=== PATIENT | male | born 1945 | race Caucasian/White ===

== ENCOUNTER 2023-11-09 19:48 | Inpatient (IN) | payer MEDICARE, SELFPAY ==
[2023-11-09] VITALS (10 sets, daily range): BP systolic 111–129; BP diastolic 58–72; BMI 21.9
[2023-11-09 14:57] LABS: % Basophils 0.3 % (0-2); % Eosinophils 0.1 % (0-6); % Immature Granulocytes 0.3 % (0-0.5); % Lymphocytes 11.6 % (20.5-51.1); % Neutrophils 73.7 % (42.2-75.2); Absolute Basophils 0.1 10^3/uL (0-0.2); Absolute Immature Granulocytes 0.1 10^3/uL (0-0.05); Absolute Lymphocytes 1.7 10^3/uL (1.2-3.4); Absolute Neutrophils 10.7 10^3/uL (1.4-6.5); Hematocrit 40.1 % (39.0-52.0); Hemoglobin 13.8 g/dL (13.0-18.0); Mean Corp Hgb Conc. 34.4 g/dL (33.0-37.0); Mean Corpuscular Hgb 31.9 pg (27.0-31.0); Mean Corpuscular Volume 92.8 fL (80.0-94.0); Mean Platelet Volume 9.9 fL (7.4-10.4); Nucleated Red Blood Cells % 0 % (-); Platelet Count 224 10^3/uL (130-400); Red Blood Cell Count 4.32 10^6/uL (4.70-6.10); White Blood Cell Count 14.5 10^3/uL (4.8-10.8)
[2023-11-09 15:09] LABS: ALT (SGPT) 17 U/L (0-50); AST (SGOT) 28 U/L (17-59); Albumin 4.2 g/dl (3.5-5.0); Alkaline Phosphatase 58 U/L (38-126); Blood Urea Nitrogen 32 mg/dl (9-20); Calcium 9.6 mg/dl (8.4-10.2); Carbon Dioxide 30 mmol/L (22-30); Chloride 98 mmol/L (98-107); Glucose 112 mg/dl (70-99); Lipase 54 U/L (23-300); Potassium 4.6 mmol/L (3.5-5.1); Sodium 138 mmol/L (135-145); Total Bilirubin 2.1 mg/dl (0.2-1.3); eGFR > 60.00
[2023-11-09 15:18] LABS: COVID-19 Antigen Negative (Negative)
--- NOTE | 2023-11-09 18:14 | ED.GENMED ---
History of Present Illness
General
Chief Complaint: Abdominal Pain
Source: patient
Exam Limitations: none
Time Seen by Provider: 11/09/23 15:19
Nursing documentation reviewed up to this point in time: agreed with
History of Present Illness
History of Present Illness:
Patient to ED wt complaint of upper abdominal pain. Reports bloating senstion on Sat PM, unable to sleep. SUn AM he developd upper abd. pain and pain continues to worsen. Denies fever but reports chills. No n/v/d. Poor appetite. No prior
history of same.
Past History
Past History
ED Past Medical History: Hypercholesterolemia
ED Past Surgical History: Tonsilectomy
Review of Systems
Review of Systems
Allergies reviewed?: Yes
All Other Systems: ROS reviewed and negative except as documented in HPI and ROS
Constitutional: Reports no symptoms
EENT: Reports no symptoms
Respiratory: Reports no symptoms
Cardiac: Reports no symptoms
ABD/GI: Reports abdominal pain and anorexia
: Reports no symptoms
Musculoskeletal: Reports no symptoms
Skin: Reports no symptoms
Neurological: Reports no symptoms
Psychiatric: Reports no symptoms
Phy Exam
General Physical Exam
General Presentation: well appearing and no apparent distress
General age: appears stated age
General Skin: warm and dry
General Habitus: normal
General Mental: alert
Cardiovascular Exam
Cardiovascular Exam: regular rate/rhythm and no edema
Pulmonary Exam
Pulmonary Exam: lungs clear and no respiratory distress
Gastrointestinal Exam
Gastrointestinal Exam: normal bowel sounds, soft, no organomegaly, no pulsatile mass, non distended and no cva tenderness
Palpation: left upper quadrant: Moderate tenderness, left lower quadrant: No tenderness, right upper quadrant: Moderate tenderness and right lower quadrant: No tenderness
Musculoskeletal Exam
Musculoskeletal Exam: full ROM and neuro vasc intact
Skin Exam
Skin Exam: normal color, warm/dry and no rash
Psychiatric Exam
Psychiatric Exam: normal mood/affect
Course
Orders/Labs/Results
Orders:
Orders
11/09/23 14:40
Electrocardiogram (*1) Urgent
Reason for Study: Abdominal Pain
EKG- Treatment ONCE
11/09/23 14:48
COVID-19 Antigen Urgent
Source: Nasal Swab
Complete Blood Count/With Diff Urgent
Comprehensive Metabolic Panel Urgent
Lipase Urgent
Lyme Progressive Urgent
11/09/23 Dinner
NPO
Allow oral meds: No
Allow clear liquids: Sips of Clears
NPO with Ice Chips: Yes
11/09/23 16:11
US Abdomen Complete/Upper Urgent
Comment:
Reason For Exam: upper abdominal paiin
11/09/23 18:23
Piperacillin/Tazo 3.375 Gram [Zosyn] 3.375 gram in 50 ml IV NOW
11/09/23 18:30
0.9% Sodium Chloride 1000 ml [Nss] 1,000 ml IV 125 mls/hr
11/09/23 19:24
Admit/Transfer Patient As Directed
Co-Sign Provider:
Level of Care: Inpatient admission
Assign to:: Medical/Surgical
Physician / Group: Hospitalist
Diagnosis: Cholecystitis
Reason for Hospitalization: cholecystitis
Expected length of stay greater than two midnights?: Yes
ELOS- Estimated Length of Stay in days: 3
I certify the patient meets the requirements for IP care: Yes
Code Status As Directed
Resuscitation Status: Full Code
PRN Pain Medication Management As Directed
May give lesser potent ordered pain med per pt: Yes
preference::
Protocol:: Medication orders for pain may be administered in a
manner that supports deferring to patient preference
when the pt is:
- Requesting an ordered lesser potent pain medication.
Least to most potent pain medications are defined
as: acetaminophen < NSAID < tramadol < opioids
(morphine, oxycodone, hydromorphone).
- Requesting a lesser dose of the same medication IF
ORDERED.
- Requesting a less intrusive route of administration
if both routes are prescribed by the provider (PO <
IV).
11/09/23 20:23
Bisacodyl [Dulcolax] 10 mg RECTAL [id number] PRN
Morphine Sulfate 2 mg IV Q4HPRN PRN
Ondansetron Injectable [Zofran] 4 mg IV Q6HPRN PRN
11/09/23 20:23
SURGICAL CONSULT Routine
Consulting Provider: Aaron Schilling
Was physician already notified: Yes
Reason for consult: cholecystitis
MR Mrcp Without Routine
Comment:
Reason For Exam: cholecystitis
OK for patient to be off Cardiac Monitoring for MRI: Yes
Recent pill cam endoscopy?: No
Activity As Directed
Activity Level: Ambulate
Pneumatic Compression Sleeves As Directed
Type: Knee high
Vital Signs As Directed
Frequency: Per unit guidelines
DX Deep Vein Thrombosis Video Routine
11/10/23 06:00
Amylase IN AM
Complete Blood Count/No Diff IN AM
Comprehensive Metabolic Panel IN AM
Lipase IN AM
Abnormal Lab Results
11/09/23
14:48
WBC 14.5 H 10^3/uL
(4.8-10.8)
RBC 4.32 L 10^6/uL
(4.70-6.10)
MCH 31.9 H pg
(27.0-31.0)
Abs Immat Gran (auto) 0.1 H 10^3/uL
(0-0.05)
Absolute Neuts (auto) 10.7 H 10^3/uL
(1.4-6.5)
Absolute Monos (auto) 2.0 H 10^3/uL
(0.1-0.6)
Lymphocytes % 11.6 L %
(20.5-51.1)
Monocytes % 14.0 H %
(1.7-9.3)
BUN 32 H mg/dl
(9-20)
Glucose 112 H mg/dl
(70-99)
Total Bilirubin 2.1 H mg/dl
(0.2-1.3)
11/09/23 14:48
11/09/23 14:48
Vital Signs
Initial and Last Documented VS:
Initial Vital Signs
Temp Pulse Resp BP Pulse Ox
99.5 F 66 20 120/72 94
11/09/23 14:36 11/09/23 14:36 11/09/23 14:36 11/09/23 14:36 11/09/23 14:36
Last Documented Vital Signs
Temp Pulse Resp BP Pulse Ox
98.3 F 56 20 129/71 95
11/09/23 20:33 11/09/23 20:33 11/09/23 20:33 11/09/23 20:33 11/09/23 20:33
*Radiology
Radiology exam reviewed: radiology read reviewed
*Pulse Oximetry
Patient hypoxic: no
*Critical Care Note
Total Time (30-74mins, 75-104mins- exclusive of procedures): Not Applicable
Update Note
Update Note:
Dr. Blanco notified of US findings. WIll admit to hospitalist service, Dr. Schilling to consult. [facility] tomorrow. Patient and family agreeable to plan.
ED Attending Note
-
Portions of this chart may have been created with voice recognition software.� Occasional wrong word or��sound alike� substitutions may have occurred due to the inherent limitations of voice recognition software.
Discharge Plan
Departure
Patient Disposition: Admit
Date of Disposition: 11/09/23
Time of Disposition: 18:21
Presentation/result/management discussed w/ accepting MD/DO: Hospitalist
Patient with high blood pressure during this ER visit?: No
Condition: Fair
Discharge Problem:
Cholecystitis, Dilated bile duct
Interventions
Interventions:
*Risk Screen - Suicide Last Done: 11/09/23 18:16
*General Assessment Last Done: 11/09/23 18:16
*Neglect/Abuse Screening Last Done: 11/09/23 18:16
*ED COVID-19 Vaccine History Last Done: 11/09/23 18:16
*Nursing Disposition Last Done: 11/09/23 20:11
[facility]Hpsxoyqdj[facility] Assessment Last Done: 11/09/23 18:18
Discharge Date and Time
Discharge Date/Time: 11/09/23 20:11
[2023-11-09] MEDS: ZOSYN 50 IV (18:29)
[2023-11-09] MEDS: NSS 1000 IV (18:30)
--- NOTE | 2023-11-09 19:13 | HPS.HSE ---
Family Physician
-
Family Physician: Mary Miguel
Chief Complaint
-
ABd pain
History of Present Illness
78 man, usually in good health, comes in with complaint of upper abdominal pain. He reports bloating sensations 2 days ago, and has been unable to sleep. Yesterday, he developed upper abd. pain and the pain continued to worsen. He denies fever,
but reports chills. No n/v/d. Poor appetite. No prior history of same. At the time of my interview, he was comfortable.
Medical History
Past Medical History
Past Medical History: Reports Other
Additional Past Medical History:
Hypercholesterolemia
h/o Tonsilectomy
Past Surgical History: Reports Other
Additional Past Surgical History:
See above
Social History
Tobacco: Non-smoker
Alcohol: None
Drug: None
Family History
Family History: Not pertinent
Allergies / Home Medications
Allergies reflects when Allergies were last updated in [facility].
Home Medications with original date entered in [facility]
Allergy/Medication List:
Allergies
Allergy/AdvReac Type Severity Reaction Status Date / Time
No Known Allergies Allergy Unverified 11/09/23 14:37
Home Medications
atorvastatin 10 mg tablet 10 mg PO HS 11/09/23
calcium carbonate 500 mg-vitamin D3 3.125 mcg (125 unit) tablet 1 tab PO DAILY 11/09/23
ibuprofen 200 mg tablet 200 mg PO Q6HPRN PRN mild pain 11/09/23
omega 3-dnm-erf-fish oil 1,000 mg (120 mg-180 mg) capsule (Fish Oil) 1 cap PO DAILY 11/09/23
Review of Systems
-
History Source: Patient
A 12 point ROS was completed and negative except as noted: Yes
Physical Exam
Vital Signs
Vital Signs
Temp Pulse Resp BP Pulse Ox
99.5 F 61 18 122/69 95
11/09/23 14:36 11/09/23 18:15 11/09/23 18:15 11/09/23 18:00 11/09/23 18:15
Physical Exam
General: Well Developed, Well Nourished, No Apparent Distress, Comfortable and Conversant
HEENT: NormoCephalic, Anicteric, Moist mucous membranes, [place] Conjunctivae, No Ptosis, Nose Appears Normal and Ears Appear Normal
Respiratory: Clear
Cardiac: S1/S2 and Regular Rhythm
GI: Soft, Non Tender and Non Distended
Musculoskeletal: No Clubbing, No Cyanosis and No Edema
Skin: Warm and Dry; No Rash or Jaundice
Neuro: Awake, Alert, Oriented and AO x 3
Psych: Calm
Laboratory Results
-
11/09/23 14:48
11/09/23 14:48
Laboratory Results
Total Bilirubin 2.1 mg/dl (0.2-1.3) H 11/09/23 14:48
AST 28 U/L (17-59) 11/09/23 14:48
ALT 17 U/L (0-50) 11/09/23 14:48
Alkaline Phosphatase 58 U/L (38-126) 11/09/23 14:48
Lipase 54 U/L (23-300) 11/09/23 14:48
Data Reviewed
-
Lab Data: Labs Reviewed by me
Impression/Plan
-
IMPRESSION:
78 man with abd pain and cholecystitis. US and labs shows:
There is biliary sludge in the gallbladder with thickening of the gallbladder wall to 3.5 mm suggesting possible cholecystitis
There is intrahepatic and extrahepatic biliary dilatation suggesting distal biliary obstruction such as may be seen with biliary ductal calculus
The pancreas is suboptimally visualized
WBC 14.5
BUN/Creat 32/0.8
Lipase 54
PLAN:
1. Probable chocystitis, with WBC of 14.5, no signs of pancreatitis.
Surgical consult (By ED)
MRCP requested
NPO
IV pain/nausea control
IV fluids
2. BUN/Creat > 20, likely from poor po intake
IV fluids
Recheck labs in am
Code: Full
VCD for DVTp
--- NOTE | 2023-11-09 20:30 | PTCARENOTE ---
Pt a 78 man, arrived from ED at 20:15. He had been having upper abdominal pain & bloating sensations 2 days & unable to sleep. Yesterday, he developed upper abd. pain and the pain continued to worsen with chills, poor appetite but no n/v/d. PMH
HLD. An US of his abdomen showed biliary sludge and thickening in the gallbladder wall suggesting cholecystitis, a 1cm renal cyst and dilation of the common bile duct to 9mm suggesting possible ductal calculus. Pt will have surgical consult
tomorrow. Pt arrived with his Dena and 2 of his four adult children. Pt is AOx3, indicates his pain is a 2 & he does not require medication at this time. N/S is running in his LAC at 125 mL/hr. Pt's bed is in a low position, call light in reach
and SCDs are on.
--- NOTE | 2023-11-09 22:00 | PTCARENOTE ---
Pt last BM reported by pt on 11/06. Pt refused Dulcolax Suppository last night. Said he does not feel constipated because he has not been eating much. Pt said he will reconsider tomorrow after MRCP and taking to the surgeon.
[2023-11-10] VITALS (12 sets, daily range): BP systolic 108–129; BP diastolic 56–78; BMI 22.1
[2023-11-10] MEDS: NSS 1000 IV ×2 (02:30→10:34)
[2023-11-10 07:10] LABS: Hemoglobin 12.8 g/dL (13.0-18.0); Mean Corp Hgb Conc. 33.7 g/dL (33.0-37.0); Mean Corpuscular Hgb 32.2 pg (27.0-31.0); Mean Corpuscular Volume 95.5 fL (80.0-94.0); Mean Platelet Volume 10.6 fL (7.4-10.4); Platelet Count 207 10^3/uL (130-400); Red Blood Cell Count 3.98 10^6/uL (4.70-6.10); Red Cell Dist. Width 11.9 % (11.5-14.5); White Blood Cell Count 12.5 10^3/uL (4.8-10.8)
--- NOTE | 2023-11-10 07:24 | W.PN.HOSP.TC ---
Today's Communication/Plan
-
check MRCP
NPO
pain control
Surgery eval
Assessment / Plan
Assessment / Plan
Physical Exam
General: Well Developed, Well Nourished, No Apparent Distress, Comfortable and Conversant
HEENT: NormoCephalic, Anicteric, Moist mucous membranes, [place] Conjunctivae, No Ptosis
Cardiac: S1/S2 and Regular Rhythm
GI: Soft, Non Tender and Non Distended
Musculoskeletal: No Clubbing, No Cyanosis and No Edema
Skin: Warm and Dry; No Rash or Jaundice
Neuro: AO x 3
Psych: Calm
78 man with abd pain and cholecystitis. US and labs shows:
There is biliary sludge in the gallbladder with thickening of the gallbladder wall to 3.5 mm suggesting possible cholecystitis
There is intrahepatic and extrahepatic biliary dilatation suggesting distal biliary obstruction such as may be seen with biliary ductal calculus
The pancreas is suboptimally visualized
WBC 14.5
BUN/Creat 32/0.8
Lipase 54
PLAN:
1. Probable chocystitis, with WBC of 14.5, no signs of pancreatitis.
Surgical consult appreciated
MRCP pending
NPO
IV pain/nausea control
IV fluids
2. BUN/Creat > 20, likely from poor po intake
IV fluids
monitor
Code: Full
VCD for DVTp
Anticipated Discharge: 24 - 48 hours
Subjective/Interval History
-
Date of Service: November 10, 2023
No acute distress. Appears comfortable at this time. Reports pain significantly improved. No tenderness
Objective Data
-
Labs:
Laboratory Results
11/10/23
06:02
WBC 12.5 H
Hgb 12.8 L
Hct 38.0 L
Plt Count 207
Sodium Pending
Potassium Pending
Chloride Pending
Carbon Dioxide Pending
BUN Pending
Creatinine Pending
Glucose Pending
Calcium Pending
Total Bilirubin Pending
AST Pending
ALT Pending
Alkaline Phosphatase Pending
Vital Signs:
Vital Signs
Temp Pulse Resp BP Pulse Ox
99.1 F 57 20 112/60 94
11/09/23 23:13 11/09/23 23:13 11/09/23 23:13 11/09/23 23:13 11/09/23 23:13
[2023-11-10 07:30] LABS: ALT (SGPT) 14 U/L (0-50); AST (SGOT) 25 U/L (17-59); Albumin 3.5 g/dl (3.5-5.0); Alkaline Phosphatase 61 U/L (38-126); Amylase 63 U/L (30-110); Blood Urea Nitrogen 27 mg/dl (9-20); Calcium 8.8 mg/dl (8.4-10.2); Carbon Dioxide 27 mmol/L (22-30); Chloride 101 mmol/L (98-107); Estimated Creatinine Clearance 92 ml/min; Glucose 78 mg/dl (70-99); Lipase 48 U/L (23-300); Potassium 4.1 mmol/L (3.5-5.1); Sodium 137 mmol/L (135-145); Total Bilirubin 2.1 mg/dl (0.2-1.3); Total Protein 6.1 g/dl (6.3-8.2); eGFR > 60.00
--- NOTE | 2023-11-10 12:33 | CM ---
Admitted with probable cholecystitis
Met with pt and his at bedside
Pt lives with his in a 2 story home with 1 step to enter, 13 steps to 2nd fl
Describes self as active/independent, retired, drives
DME - none
SNF/HH - no past hx; has had outpatient PT in past
PCP - Dr Mary Miguel
Pharm - [facility]
CM remains available for discharge needs
Plan - anticipate home no needs
[2023-11-10] MEDS: ZOSYN 50 IV ×3 (12:48→23:09)
--- NOTE | 2023-11-10 13:13 | CON.GS ---
Medical History
-
Chief Complaint: Epigastric abdominal pain
History of Present Illness:
Patient is a 78 yo M with a PMH notable for HLD who presents with 2 to 3 days of epigastric abdominal pain. Mr. Merritt states that his pain began Thursday (11/06) evening. He describes a bloating and epigastric discomfort which is worse with deep
inspiration. Limited p.o. intake over the past 2 to 3 days due to his symptoms. He denies any acute worsening of pain or symptoms around the time of eating. He denies any prior attacks of similar discomfort. No fevers or chills. No nausea or
vomiting. No jaundice, pale stools, or tea colored urine.
Past Medical History
Past Medical History: Hypercholesterolemia
Past Surgical History: Tonsilectomy
Social History
Tobacco: Non-Smoker
Alcohol: None
Drug: None
Employment: Retired
Family History
Family History: Reviewed & Noncontributory
Allergies / Home Medications
Allergy/AdvReac Type Severity Reaction Status Date / Time
No Known Allergies Allergy Unverified 11/09/23 14:37
�Medication �Instructions �Recorded �Confirmed �Type
atorvastatin 10 mg tablet 10 mg PO HS High Cholesterol 11/09/23 11/09/23 History
calcium carbonate 500 mg-vitamin 1 tab PO DAILY Supplement 11/09/23 11/09/23 History
D3 3.125 mcg (125 unit) tablet
ibuprofen 200 mg tablet 200 mg PO Q6HPRN PRN mild pain 11/09/23 11/09/23 History
omega 1-blj-pqa-fish oil 1,000 mg 1 cap PO DAILY High Cholesterol 11/09/23 11/09/23 History
(120 mg-180 mg) capsule (Fish Oil)
Review of Systems
-
A 10 point review of systems was completed, and was negative except as per HPI.
Physical Exam
Vital Signs
Temp Pulse Resp BP Pulse Ox
99.3 F 64 17 116/78 95
11/10/23 07:39 11/10/23 07:39 11/10/23 07:39 11/10/23 07:39 11/10/23 08:16
11/09/23 11/10/23 11/11/23
06:59 06:59 06:59
Actual Weight 73.709 kg
Body Mass Index (BMI) 22.1
Lab Results
11/10/23 06:02
11/10/23 06:02
WBC 12.5 10^3/uL (4.8-10.8) H 11/10/23 06:02
Hgb 12.8 g/dL (13.0-18.0) L 11/10/23 06:02
Hct 38.0 % (39.0-52.0) L 11/10/23 06:02
Plt Count 207 10^3/uL (130-400) 11/10/23 06:02
Abs Immat Gran (auto) 0.1 10^3/uL (0-0.05) H 11/09/23 14:48
Neutrophils % 73.7 % (42.2-75.2) 11/09/23 14:48
Physical Exam
General: Well Developed, Well Nourished and No Apparent Distress
HEENT: Normocephalic and Anicteric
Respiratory: Non Labored Respirations
Cardiac: Regular Rhythm
GI: Soft, Non Distended, Tender (Mild epigastric, positive Gaitan sign) and Other (Nonperitoneal)
Musculoskeletal: No Edema
Neuro: Nonfocal/Grossly Intact
Data Reviewed
-
Ultrasound: Image Personally Visualized and interpreted and Report Reviewed by me
MRI: Image Personally Visualized and interpreted and Report Reviewed by me
Labs: Labs Reviewed by me
Assessment / Plan
-
Patient is a 78 yo M p/w likely cholecystitis, possible passed choledocholithiasis
The natural history and pathophysiology of biliary and stone disease was discussed. Workup thus far including labs, ultrasound, and MRI imaging were reviewed. Persistent abdominal discomfort. Options for management including medical management
with low-fat diet and antibiotics versus surgical management with cholecystectomy were considered and discussed. The pros and cons of both approaches was discussed. Given his persistent discomfort recommend cholecystectomy.
Plan for laparoscopic cholecystectomy with possible cholangiogram. The procedure itself, as well as the risks, benefits, and alternatives was discussed. Specifically, we discussed the risks of bleeding, infection, injury to surrounding structures
(bowel, bile ducts), CBD injury, need for open procedure. Typical post procedure recovery including pain management, limitations in activities, and the 10 to 20% risk of fluctuations in GI function were discussed. All questions answered. Consent
signed.
-- Laparoscopic cholecystectomy with possible IOC
-- NPO, IVF
-- Antibiotics: Zosyn
-- Admitted back to floor postoperatively
--- NOTE | 2023-11-10 13:18 | W.SUR.PREOP ---
Pre-Operative Surgical Note
-
I have examined this patient prior to the performance of the scheduled procedure.
The patient's condition is unchanged from the time of the current History and
Physical and the patient is able to undergo the scheduled procedure.
--- NOTE | 2023-11-10 15:19 | W.IMMPOSTOP ---
Addendum entered and electronically signed by Bridger Busch MD 11/13/23 15:54:
[facility]#[id number]
Original Note:
Surgical Immed Post Op Note
-
Primary Surgeon: Narayan
Assisting Surgeon: None
Pre-op Diagnosis: Acute cholecystitis
Post-op Diagnosis: Cholecystitis and choledocholithiasis
Procedure Performed: Laparoscopic cholecystectomy with IOC
Anesthesia Type: General
Specimen / Cultures:
1. Gallbladder
Estimated Blood Loss: 3 cc
Complications: None
Operative Findings:
1. Acutely inflamed GB with significant wall thickening and edema, purulence within the cystic ductotomy
2. Critical view
3. IOC with anatomy confirmed and filling defects just above the cystic duct insertion within the CBD, no obstruction
Plan:
-- GI consult for choledocholithiasis
-- Continue abx for at least 4 days post-op, more if bacteremic
[2023-11-10] MEDS: TYLENOL PO (15:53)
--- NOTE | 2023-11-10 16:09 | CON.GI ---
Consultation
-
Date/Time Consultation Requested: 11/10/2023
Date/Time Consultation Performed: 11/10/2023
Performing Provider: Benjy Palacios
Reason for Consultation: +ve IOC
Medical History
Chief Complaint / HPI
Chief Complaint: +ve IOC
History of Present Illness:
Patient is a 78-year-old male with no significant history who presented with 2-day history of right-sided abdominal pain. His pain was associated with significant bloating. He had RUQ US which showed gallbladder sludge as well as gallbladder wall
thickening and intra and extrahepatic ductal dilation suggestive of possible choledocholithiasis. This was followed with MRCP which was negative for CBD stone. Patient was taken to the OR for cholecystectomy and had IOC which showed filling
defects.
Past Medical History
Past Medical History: Hypercholesterolemia
Past Surgical History: Tonsilectomy
Social History
Tobacco: Non-Smoker
Alcohol: None
Allergies / Home Medications
Allergy/AdvReac Type Severity Reaction Status Date / Time
No Known Allergies Allergy Unverified 11/09/23 14:37
�Medication �Instructions �Recorded
atorvastatin 10 mg tablet 10 mg PO HS High Cholesterol 11/09/23
calcium carbonate 500 mg-vitamin 1 tab PO DAILY Supplement 11/09/23
D3 3.125 mcg (125 unit) tablet
ibuprofen 200 mg tablet 200 mg PO Q6HPRN PRN mild pain 11/09/23
omega 1-aqu-ipe-fish oil 1,000 mg 1 cap PO DAILY High Cholesterol 11/09/23
(120 mg-180 mg) capsule (Fish Oil)
Review of Systems
Vital Signs
Temp Pulse Resp BP Pulse Ox
97.9 F 55 13 117/61 100
11/10/23 15:35 11/10/23 16:00 11/10/23 16:00 11/10/23 16:00 11/10/23 16:05
Physical Exam
Exam
General: Well Developed and Well Nourished
HEENT: Normocephalic
Respiratory: Clear
Cardiac: S1/S2
GI: Soft, Non Tender, Non Distended and Normal Bowel Sounds
Results
WBC 12.5 10^3/uL (4.8-10.8) H 11/10/23 06:02
Hgb 12.8 g/dL (13.0-18.0) L 11/10/23 06:02
Hct 38.0 % (39.0-52.0) L 11/10/23 06:02
MCV 95.5 fL (80.0-94.0) H 11/10/23 06:02
Plt Count 207 10^3/uL (130-400) 11/10/23 06:02
Absolute Neuts (auto) 10.7 10^3/uL (1.4-6.5) H 11/09/23 14:48
Sodium 137 mmol/L (135-145) 11/10/23 06:02
Potassium 4.1 mmol/L (3.5-5.1) 11/10/23 06:02
Chloride 101 mmol/L (98-107) 11/10/23 06:02
Carbon Dioxide 27 mmol/L (22-30) 11/10/23 06:02
BUN 27 mg/dl (9-20) H 11/10/23 06:02
Creatinine 0.7 mg/dL (0.7-1.3) 11/10/23 06:02
Calcium 8.8 mg/dl (8.4-10.2) 11/10/23 06:02
Total Bilirubin 2.1 mg/dl (0.2-1.3) H 11/10/23 06:02
AST 25 U/L (17-59) 11/10/23 06:02
ALT 14 U/L (0-50) 11/10/23 06:02
Alkaline Phosphatase 61 U/L (38-126) 11/10/23 06:02
Amylase 63 U/L (30-110) 11/10/23 06:02
Lipase 48 U/L (23-300) 11/10/23 06:02
Diagnostic Image Results:
Prior GI Procedures:
EGD:
Colonoscopy:
Assessment / Plan
-
78-year-old male who presented with abdominal pain and found to have gallbladder wall thickening and sludge, negative for choledocholithiasis on MRCP and had cholecystectomy, now GI consulted for +ve IOC.
Impression / Rec:
1. +ve IOC - pt's IOC and MRCP were reviewed by me. Visible filling defects which may represent retained choledocholithiasis vs air. Will plan for EUS +/- ERCP tomorrow.
Total Time Spent with Patient (in minutes): 55
-
-
Thank you for consultation and allowing me to participate in the patient's care. Please call the concrete journeyman GI physician during the after hours with any questions or concerns.
--- NOTE | 2023-11-10 17:02 | PTCARENOTE ---
The patient returned to his room from [facility] post laparoscopic cholecystectomy.The patient denies any pain at present.All 5 laparoscopic sites are clean and dry without drainage. Vital signs are stable.The patient is in his bed with the call kay
within reach.
[2023-11-10] MEDS: TORADOL 10 MG IV (18:36)
[2023-11-10] MEDS: TYLENOL 650 MG PO (19:49)
[2023-11-10] MEDS: NSS IV (20:04)
[2023-11-10] MEDS: ANESTHETIC LOZENGE 1 LOZENGE PO (23:20)
[2023-11-11] VITALS (10 sets, daily range): BP systolic 97–134; BP diastolic 54–78
[2023-11-11] MEDS: TYLENOL PO ×6 (00:05→21:00)
[2023-11-11] MEDS: NSS 1000 IV ×2 (02:32→14:12)
[2023-11-11] MEDS: ZOSYN 50 IV ×4 (05:13→23:23)
[2023-11-11 06:33] LABS: Hematocrit 36.8 % (39.0-52.0); Hemoglobin 12.5 g/dL (13.0-18.0); Mean Corpuscular Hgb 32.1 pg (27.0-31.0); Mean Corpuscular Volume 94.4 fL (80.0-94.0); Mean Platelet Volume 10.5 fL (7.4-10.4); Platelet Count 228 10^3/uL (130-400); Red Cell Dist. Width 11.8 % (11.5-14.5); White Blood Cell Count 12.2 10^3/uL (4.8-10.8)
[2023-11-11 07:07] LABS: ALT (SGPT) 62 U/L (0-50); AST (SGOT) 82 U/L (17-59); Albumin 3.4 g/dl (3.5-5.0); Alkaline Phosphatase 75 U/L (38-126); Blood Urea Nitrogen 25 mg/dl (9-20); Calcium 8.6 mg/dl (8.4-10.2); Carbon Dioxide 28 mmol/L (22-30); Chloride 105 mmol/L (98-107); Estimated Creatinine Clearance 92 ml/min; Glucose 123 mg/dl (70-99); Potassium 4.4 mmol/L (3.5-5.1); Sodium 138 mmol/L (135-145); Total Bilirubin 1.4 mg/dl (0.2-1.3); Total Protein 5.9 g/dl (6.3-8.2); eGFR > 60.00
--- NOTE | 2023-11-11 07:19 | W.PN.HOSP.TC ---
Today's Communication/Plan
-
diet as per GI surgery
cont abx
follow up AM LFT as per GI
Assessment / Plan
Assessment / Plan
Physical Exam
General: Well Developed, Well Nourished, No Apparent Distress, Comfortable and Conversant
HEENT: NormoCephalic, Anicteric, Moist mucous membranes, [place] Conjunctivae, No Ptosis
Cardiac: S1/S2 and Regular Rhythm
GI: Soft, Non Tender and Non Distended
Musculoskeletal: No Clubbing, No Cyanosis and No Edema
Skin: Warm and Dry; No Rash or Jaundice
Neuro: AO x 3
Psych: Calm
78 man with abd pain and cholecystitis. US and labs shows:
There is biliary sludge in the gallbladder with thickening of the gallbladder wall to 3.5 mm suggesting possible cholecystitis
There is intrahepatic and extrahepatic biliary dilatation suggesting distal biliary obstruction such as may be seen with biliary ductal calculus
The pancreas is suboptimally visualized
WBC 14.5
BUN/Creat 32/0.8
Lipase 54
PLAN:
Cholecystitis
MRCP appreciated
-No evidence of biliary ductal dilation. No discrete filling defect within the common bile duct to suggest choledocholithiasis.
-There was widely dilated gallbladder with layering sludge, wall thickening and trace pericholecystic fluid suggestive of cholecystitis.
-Small volume perihepatic free fluid.
surgery eval appreciated s/p cholecystectomy
GI eval appreciated EUS completed no need for ERCP.
cont abx
LFD as per surgery
Code: Full
VCD for DVTp
I spent a total of 40 minutes with the patient or on the floor. More than 50% of this time involved counseling and coordination of care.
Anticipated Discharge: Within 24 hours
Subjective/Interval History
-
Date of Service: November 11, 2023
Seen and examined at bedside. No acute distress, reports feeling well pain free following cholecystectomy. Underwent EUS today without issues.
Objective Data
-
Labs:
Laboratory Results
11/11/23
06:05
WBC 12.2 H
Hgb 12.5 L
Hct 36.8 L
Plt Count 228
Sodium 138
Potassium 4.4
Chloride 105
Carbon Dioxide 28
BUN 25 H
Creatinine 0.7
Glucose 123 H
Calcium 8.6
Total Bilirubin 1.4 H
AST 82 H
ALT 62 H
Alkaline Phosphatase 75
Vital Signs:
Vital Signs
Temp Pulse Resp BP Pulse Ox
97.5 F 43 14 100/60 97
11/11/23 03:00 11/11/23 03:00 11/11/23 03:00 11/11/23 03:00 11/11/23 03:00
I&O
11/10/23 11/11/23 11/12/23
06:59 06:59 06:59
Intake Total 1565 / 1565
Balance 1565 / 1565
--- NOTE | 2023-11-11 07:32 | W.PN.GS2 ---
Today's Communication / Plan
-
-- GI consult, ERCP
-- NPO, OK to ADAT to LFD following GI management
-- Abx: Zosyn, would treat for 4-7 days post-op with Augmentin on DC
Assessment / Plan
-
Patient is a 78 yo M POD#1 s/p laparoscopic cholecystectomy with IOC
US demonstrates mild gallbladder wall thickening with sludge, and a dilated CBD
MRI demonstrates cholecystitis with no significant biliary ductal dilation or choledocholithiasis based on radiologist read
IOC notable for choledocholithiasis and purulence within the cystic duct
AVSS
Labs notable for slight downtrend in bili, bump in LFTs
Recovering well overall. GI consult for consideration of ERCP.
-- GI consult, ERCP
-- NPO, OK to ADAT to LFD following GI management
-- IVF
-- Pain control: Tylenol, Toradol, Oxycodone
-- Abx: Zosyn, would treat for 4-7 days post-op with Augmentin on DC
-- DVT: Lovenox
-- DC instructions updated
Subjective Data
-
Date of Service: November 11, 2023
Feels improved, central abdominal pain almost gone. No nausea or vomiting. No fevers.
Objective Data
-
Intake and Output
11/10/23 11/11/23 11/12/23
06:59 06:59 06:59
Intake Total 1565 / 1565
Balance 1565 / 1565
Intake:
Oral fluids 240 / 240
IV fluids (Total) 1075 / 1075
normosol 100 / 100
IV piggybacks 250 / 250
Other:
Number of approximated SMALL 1
amounts of urine
Number of approximated MODERATE 2 3
amounts of urine
Vital Signs
Temp Pulse Resp BP Pulse Ox
97.5 F 43 14 100/60 97
11/11/23 03:00 11/11/23 03:00 11/11/23 03:00 11/11/23 03:00 11/11/23 03:00
Lab Results
11/11/23 06:05
11/11/23 06:05
Calcium 8.6 mg/dl (8.4-10.2) 11/11/23 06:05
Total Bilirubin 1.4 mg/dl (0.2-1.3) H 11/11/23 06:05
AST 82 U/L (17-59) H 11/11/23 06:05
ALT 62 U/L (0-50) H 11/11/23 06:05
Alkaline Phosphatase 75 U/L (38-126) 11/11/23 06:05
Total Protein 5.9 g/dl (6.3-8.2) L 11/11/23 06:05
Albumin 3.4 g/dl (3.5-5.0) L 11/11/23 06:05
Physical Exam
-
Gen: NAD
Abd: soft, mild tenderness, ND, non-peritoneal, incisions c/d/i- no erythema, ecchymosis or drainage
--- NOTE | 2023-11-11 10:13 | PTCARENOTE ---
Addendum entered by Jody Madrigal RN 11/11/23 15:31:
Patient returned to [facility] via stretcher @12:15.
Original Note:
Telephone report given to GI TANYA Vera; patient transported via stretcher with chart by volunteer; son waiting in patient's room.
--- NOTE | 2023-11-11 12:10 | CM ---
Case management following for discharge planning
Chart reviewed
POD #1 - lap jatin with IOC
Pt for ERCP today
CM will cont to follow
Plan - anticipate home no needs
[2023-11-11] MEDS: ANESTHETIC LOZENGE 1 LOZENGE PO (12:39)
[2023-11-11] MEDS: LOVENOX 40 MG SC (17:25)
[2023-11-11] MEDS: NSS IV (23:30)
[2023-11-12] MEDS: TYLENOL PO ×3 (00:27→08:42)
[2023-11-12] MEDS: ZOSYN 50 IV ×2 (05:05→11:00)
[2023-11-12 07:28] LABS: ALT (SGPT) 53 U/L (0-50); AST (SGOT) 62 U/L (17-59); Albumin 3.6 g/dl (3.5-5.0); Alkaline Phosphatase 81 U/L (38-126); Blood Urea Nitrogen 23 mg/dl (9-20); Calcium 9.2 mg/dl (8.4-10.2); Carbon Dioxide 29 mmol/L (22-30); Chloride 102 mmol/L (98-107); Estimated Creatinine Clearance 81 ml/min; Glucose 103 mg/dl (70-99); Potassium 4.3 mmol/L (3.5-5.1); Sodium 142 mmol/L (135-145); Total Bilirubin 1.1 mg/dl (0.2-1.3); Total Protein 6.2 g/dl (6.3-8.2); eGFR > 60.00
--- NOTE | 2023-11-12 07:51 | W.PN.HOSP.TC ---
Today's Communication/Plan
-
discharge
Assessment / Plan
Assessment / Plan
Physical Exam
General: Well Developed, Well Nourished, No Apparent Distress, Comfortable and Conversant
HEENT: NormoCephalic, Anicteric, Moist mucous membranes, [place] Conjunctivae, No Ptosis
Cardiac: S1/S2 and Regular Rhythm
GI: Soft, Non Tender and Non Distended
Musculoskeletal: No Clubbing, No Cyanosis and No Edema
Skin: Warm and Dry; No Rash or Jaundice
Neuro: AO x 3
Psych: Calm
78 man with abd pain and cholecystitis. US and labs shows:
There is biliary sludge in the gallbladder with thickening of the gallbladder wall to 3.5 mm suggesting possible cholecystitis
There is intrahepatic and extrahepatic biliary dilatation suggesting distal biliary obstruction such as may be seen with biliary ductal calculus
The pancreas is suboptimally visualized
WBC 14.5
BUN/Creat 32/0.8
Lipase 54
PLAN:
Cholecystitis
MRCP appreciated
-No evidence of biliary ductal dilation. No discrete filling defect within the common bile duct to suggest choledocholithiasis.
-There was widely dilated gallbladder with layering sludge, wall thickening and trace pericholecystic fluid suggestive of cholecystitis.
-Small volume perihepatic free fluid.
surgery eval appreciated s/p cholecystectomy
GI eval appreciated EUS completed no need for ERCP:
There was dilation in the common bile duct which
measured up to 8 mm.
- There was no sign of significant pathology in the
ampulla.
- There was no sign of significant pathology in the
pancreatic head.
- No specimens collected.
cont abx
LFD as per surgery
LFTs improving Medically stable for discharge home with outpatient follow up recommendations
Code: Full
VCD for DVTp
Medically stable for discharge home with outpatient follow up recommendations.
Total Time Preparing Discharge ___35____ minutes including examination of the patient, summary of the hospital stay, instructions for continuing care to all relevant caregivers; and preparation of discharge records, prescriptions, and referral
forms if necessary.
Anticipated Discharge: Today
Subjective/Interval History
-
Date of Service: November 12, 2023
Seen and examined at bedside in no acute distress. Reports feeling well. Tolerating diet. Eager to go home.
Objective Data
-
Labs:
Laboratory Results
11/12/23
06:47
Sodium 142
Potassium 4.3
Chloride 102
Carbon Dioxide 29
BUN 23 H
Creatinine 0.8
Glucose 103 H
Calcium 9.2
Total Bilirubin 1.1
AST 62 H
ALT 53 H
Alkaline Phosphatase 81
Vital Signs:
Vital Signs
Temp Pulse Resp BP Pulse Ox
97.4 F 38 20 97/54 96
11/11/23 22:52 11/11/23 22:52 11/11/23 22:52 11/11/23 22:52 11/11/23 22:52
I&O
11/11/23 11/12/23 11/13/23
06:59 06:59 06:59
Intake Total 1565 / 1565 3210 / 3210
Balance 1565 / 1565 3210 / 3210
--- NOTE | 2023-11-12 07:56 | W.PN.GS2 ---
Today's Communication / Plan
-
-- DC today
Assessment / Plan
-
Patient is a 78 yo M POD#2 s/p laparoscopic cholecystectomy with IOC
US demonstrates mild gallbladder wall thickening with sludge, and a dilated CBD
MRI demonstrates cholecystitis with no significant biliary ductal dilation or choledocholithiasis based on radiologist read
IOC notable for CBD filling defect and purulence within the cystic duct
AVSS
Labs notable for normalization of bilirubin and downtrending LFTs
Recovering well overall.
-- LFD
-- HLIV
-- Pain control: Tylenol, Toradol, Oxycodone
-- Abx: Zosyn, would treat for 4-7 days post-op with Augmentin on DC
-- DVT: Lovenox
-- DC today
Subjective Data
-
Date of Service: November 12, 2023
No concerns or complaints. Abdominal soreness with engaging core such as sitting up, pain well-controlled at rest. No nausea or vomiting. No fevers or chills. Voiding. Ambulating.
Objective Data
-
Intake and Output
11/11/23 11/12/23 11/13/23
06:59 06:59 06:59
Intake Total 1565 / 1565 3210 / 3210
Balance 1565 / 1565 3210 / 3210
Intake:
Oral fluids 240 / 240 1535 / 1535
IV fluids (Total) 1075 / 1075 1475 / 1475
NS 75 / 75
[place] 50 / 50
normosol 100 / 100
IV piggybacks 250 / 250 200 / 200
Other:
Number of approximated SMALL 1
amounts of urine
Number of approximated MODERATE 3 3
amounts of urine
Vital Signs
Temp Pulse Resp BP Pulse Ox
97.4 F 38 20 97/54 96
11/11/23 22:52 11/11/23 22:52 11/11/23 22:52 11/11/23 22:52 11/11/23 22:52
Lab Results
11/11/23 06:05
11/12/23 06:47
Calcium 9.2 mg/dl (8.4-10.2) 11/12/23 06:47
Total Bilirubin 1.1 mg/dl (0.2-1.3) 11/12/23 06:47
AST 62 U/L (17-59) H 11/12/23 06:47
ALT 53 U/L (0-50) H 11/12/23 06:47
Alkaline Phosphatase 81 U/L (38-126) 11/12/23 06:47
Total Protein 6.2 g/dl (6.3-8.2) L 11/12/23 06:47
Albumin 3.6 g/dl (3.5-5.0) 11/12/23 06:47
Physical Exam
-
Gen: NAD
Abd: soft, mild tenderness primarily upper abdomen overlying incisions, ND, non-peritoneal, incisions c/d/i - no erythema, ecchymosis or drainage
[2023-11-12 07:57] VITALS: BP 101/59
--- NOTE | 2023-11-12 09:04 | W.DCSUMMARY ---
Discharge Summary
Discharge Data
Date of Admission: 11/09/23
Date of Discharge: 11/12/23
-
Pending Results: No
Discharge Plan
-
Patient Disposition: Home (Routine Discharge)
Discharge Diagnosis/Procedures: Laparoscopic cholecystectomy with intraoperative cholangiogram
Condition: Good
Diet: Regular and Low Fat
Additional Diets: If issues with bloating or diarrhea follow a low-fat diet
Activity: Other activity
Additional Activity: No heavy lifting (>20 lbs) or strenuous activities for 2 weeks postoperatively
Driving Restrictions: No driving if too sore or taking narcotics
Bathing Restrictions: OK to Shower
Wound Care: Keep incisions clean and dry. Glue will flake off in 2 to 3 weeks. Stitches will dissolve. Use ice to the abdomen to reduce any bruising or swelling.
Activity Restrictions/Additional Instructions:
Call for fevers (>100.5), nausea or vomiting, worsening abdominal pain, yellowing of the eyes or skin
Referrals:
Bridger Busch MD [Active] - in two to four weeks
Mary Miguel CRNP [Family Provider] - in one week
Prescriptions:
New
acetaminophen [acetaminophen] 325 mg tablet
650 mg PO Q4HPRN PRN (Reason: mild pain) Qty: 1 0RF
oxycodone 5 mg tablet
5 mg PO Q4HPRN PRN (Reason: breakthrough/severe pain) Qty: 10 0RF
amoxicillin-pot clavulanate 875-125 mg tablet
1 tab PO Q12 4 Days Qty: 8 0RF
Continued
atorvastatin 10 mg Tablet
10 mg PO HS
ibuprofen 200 mg Tablet
200 mg PO Q6HPRN PRN (Reason: mild pain)
calcium carbonate-vitamin D3 500 mg-3.125 mcg (125 unit) Tablet
1 tab PO DAILY
omega 9-dss-tvl-fish oil [Fish Oil] 1,000 mg (120 mg-180 mg) Capsule
1 cap PO DAILY
Discharge Orders:
Discharge Patient (As Directed); Ordered 11/12/23
Ordered By: Bridger Busch
Discharge Date and Time
Print Language: ANDORRAN
--- NOTE | 2023-11-12 10:22 | CM ---
CM following re: discharge planning.
Reviewed pt's chart, met with pt.
Discharge order noted. Pt is aware, expressed his agreement with discharge and pt stated his spouse is coming to transport home. IMM reviewed, placed on chart, pt has a copy.
Pt reports he is independent with functional ability. No after care VN services indicated.
d/C plan: home no needs. Spouse to transport.
[2023-11-12] MEDS: TYLENOL 650 MG PO (10:25)
[2023-11-12 11:01] VITALS: BP 95/53
[2023-11-12 13:55] LABS: Lyme Antibody Screen, EIA Negative (Negative)
== END 2023-11-12 12:51 | disposition home or self-care (01) | DRG 419 ==
LOC: 2 SOUTH 19:48
PROVIDERS: ADMITTING PHYSICIAN Internal Medicine; ATTENDING PHYSICIAN Internal Medicine; CONSULT PHYSICIAN Internal Medicine Gastroenterology; EMERGENCY PHYSICIAN Emergency Medicine; FAMILY PHYSICIAN Nurse Practitioner Adult Health; OTHER PHYSICIAN Surgery
PROC: 0FT44ZZ Resection of Gallbladder, Percutaneous Endoscopic Approach (ICD-10-PCS; 2023-11-10)
DX: K80.00 Calculus of gallbladder with acute cholecystitis without obstruction (principal); K83.8 Other specified diseases of biliary tract; K66.0 Peritoneal adhesions (postprocedural) (postinfection); E78.00 Pure hypercholesterolemia, unspecified; Z79.899 Other long term (current) drug therapy
CPT/HCPCS: 88304; 74181; 74300; 76000; 76700; 80053; 82150; 83690; 85025; 85027; 86618; 87811; 93005; 96365; 96374; 99285; A4300; J1610